=== PATIENT | female | born 1995 | race Caucasian/White ===

== ENCOUNTER 2022-02-01 11:54 | Inpatient (IN) | payer MEDICAID, SELFPAY ==
--- NOTE | ~2022-02-01 | CT_ITS ---
EXAMINATION: CT ABDOMEN AND PELVIS WITH CONTRAST CLINICAL INFORMATION: Right flank pain COMPARISON: None TECHNIQUE: Multidetector volumetric images were obtained from the superior aspect of the liver through the pubic symphysis following administration 85 mL of Omnipaque 350 intravenous contrast. Sagittal and coronal reformatted images were obtained on the technologist's workstation. Oral contrast: No This CT examination was performed using dose optimization techniques as appropriate, variously including the following: *Automated exposure control *Adjustment of mA and/or kV according to patient size (this includes techniques or standardized protocols for targeted exams where dose is matched to indication/reason for exam; i.e. extremities or head) *Use of iterative reconstruction technique DLP: 428 mGy-cm FINDINGS: LUNG BASES: The visualized lung bases are unremarkable. LIVER, GALLBLADDER, AND BILIARY TREE: The liver is normal in size, shape, and attenuation. No focal hepatic lesion or biliary ductal dilatation is present. The gallbladder is unremarkable with no evidence of radiopaque gallstones, gallbladder wall thickening, or obvious pericholecystic inflammatory changes. PANCREAS: Unremarkable. SPLEEN: Unremarkable. ADRENAL GLANDS: Unremarkable. KIDNEYS AND URETERS: There is heterogeneous enhancement of the right kidney. This can be seen with acute pyelonephritis. There is slight fullness of the right renal pelvis but no significant hydroureter. No renal or ureteral calculus. The left kidney and collecting system are normal. BLADDER: Unremarkable. GASTROINTESTINAL TRACT: The small and large bowel are unremarkable. The appendix is nonvisualized. ABDOMINAL WALL: No significant hernia is appreciated. LYMPH NODES: Normal. VASCULAR: Unremarkable. PELVIC VISCERA: There is an IUD within the uterus. Uterus is retroverted. No adnexal abnormality. OSSEOUS STRUCTURES: Unremarkable. CT/CT abdomen pelvis w IV con IMPRESSION: Heterogeneous enhancement of the right kidney suggestive of an acute pyelonephritis. Fleischner guidelines were followed.
[2022-02-01 13:26] VITALS: BP 117/66; BP 118/64; PULSE 104; PULSE 96; RESP 18; TEMP 36.8; O2SAT 99; BMI 26.4
[2022-02-01 14:26] LABS: Basophils Percent Auto 0.2 % (0-2); Hematocrit 38.4 % (37.0-47.0); Hemoglobin 13.2 g/dl (12.0-16.0); Imm Gran Pct Auto 0.6 % (0.0-0.4); Lymphocytes Absolute Auto 1.3 X10*3/uL (1.2-4.9); Lymphocytes Percent Auto 7.5 % (20-40); MANUAL DIFF FLAG SCAN; Mean Corpuscular HGB Conc 34.4 g/dl (31.0-35.0); Mean Corpuscular Hemoglobin 32.5 pg (27.0-33.0); Mean Corpuscular Volume 94.6 fL (80.0-98.0); Mean Platelet Volume 9.2 fL (9.4-12.3); Monocytes Absolute Auto 1.7 X10*3/uL (0.1-1.2); Monocytes Percent Auto 9.8 % (2-11); Neutrophils Absolute Auto 13.9 x10*3/uL (2.0-8.3); Neutrophils Percent Auto 81.9 % (45-73); Platelet Count 227 X10*3/uL (160-400); Red Blood Count 4.06 X10*6/uL (4.20-5.50); Red Cell Distribution Width 11.9 % (11.0-16.0); SCAN SMEAR FLAG 1; White Blood Count 16.9 X10*3/uL (4.8-10.8)
[2022-02-01 14:40] LABS: Alanine Aminotransferase 13 U/L (0-31); Albumin Level 4.7 g/dL (3.5-5.0); Alkaline Phosphatase 72 U/L (39-117); Anion Gap 19 (12-20); Aspartate Amino Transferase 16 U/L (5-31); Bilirubin Direct 0.3 mg/dL (0.0-0.5); Bilirubin Total 0.8 mg/dL (0.0-1.0); Blood Urea Nitrogen 9 mg/dL (9-16); Calcium 9.9 mg/dL (8.4-10.2); Carbon Dioxide 22 mmol/L (22-29); Chloride 100 mmol/L (96-108); Creatinine Clr Calc Pharmacy 84.7; Estimated Glomerular Filt Rate > 60; Glucose Random 100 mg/dL (60-115); Lipase 9 U/L (8-78); Potassium 3.7 mmol/L (3.3-5.1); Sodium 137 mmol/L (135-145); Total Protein 8.3 g/dL (6.5-8.0)
[2022-02-01 14:56] LABS: SLIDE REVIEW VERIFIED
[2022-02-01 16:00] VITALS: BP 117/69; PULSE 93; RESP 18; TEMP 37.1; O2SAT 99
--- NOTE | 2022-02-01 16:48 | ED_ITS ---
HPI - Female Genitourinary General Chief complaint: Urogenital-Female Stated complaint: RECENT UTI T-1,VOMITING,R SIDE PAIN PER EMS Time Seen by Provider: 02/01/22 15:34 Source: patient Mode of arrival: ambulatory Limitations: no limitations History of Present Illness HPI Narrative: 26-year-old female presenting to the ED for evaluation of urinary frequency, dysuria, nausea, and vomiting. The patient reports that about 2 weeks ago she developed urinary frequency and dysuria. She was seen at an Urgent Care for t hese symptoms 2 days ago, given a shot of antibiotics and a prescription for ciprofloxacin, however, for the past 1 day has had persistent nausea and vomiting and has not been able to keep anything down. She tells me that she has been unable to tolerate any PO intake including food, water, or her pills. She also believes that she has a fever and reports worsening pain in her right flank. She denies suspicion for STD or chance of . She denies any chest pain, shortness of breath, headaches, changes in vision, hematuria, vaginal bleeding, or vaginal discharge. Related Data Allergies Allergy/AdvReac Type Severity Reaction Status Date / Time No Known Allergies Allergy Verified 02/01/22 13:29 Review of Systems Review of Systems: Constitutional : No Weight loss, + Fever, No Chills, No Fatigue, No Malaise ENT/Mouth : No sore throat, No Rhinorrhea Eyes: No Eye Pain, No Swelling, No Redness Cardiovascular : No Chest Pain, No SOB, No Dyspnea on Exertion, No Orthopnea, No Edema, No Palpitations Respiratory : No Cough, No Sputum, No Wheezing Gastrointestinal : + Nausea, + Vomiting, No Diarrhea, No Constipation, No abdominal Pain, No Hematochezia, No Melena Genitourinary : + right flank pain + Dysuria, + Urinary Frequency, No Hematuria, No vaginal discharge, No vaginal bleeding Musculoskeletal : No joint pain, No Myalgias, No Joint Swelling Skin : No Skin Lesions, No rash Neuro : No Weakness, No Numbness, No Dizziness, No Headache All other systems reviewed and are negative Yes all other systems are reviewed and are negative [facility] Past Medical History Attestation statement: The following information was validated with the patient. Source: old records reviewed and nursing notes reviewed Medical History (Updated 02/01/22 @ 18:18 by GREGORY Landry) No known health problems Social History Social History Alcohol intake: current Alcohol intake frequency: a few times a week Alcohol type: hard liquor Patient Tobacco Use Status: Never used Tobacco Use of substances other than those prescribed or required for medical reasons: Yes Substance Use Type: Marijuana Advance Directives: No Advance Directives Information Provided: No Patient : No Physical Exam Vital Signs: Vital Signs: Last Vital Signs Temp 99.9 F 02/01/22 18:52 Pulse 90 02/01/22 18:52 Resp 16 02/01/22 18:52 BP 105/60 02/01/22 18:52 Pulse Ox 98 02/01/22 18:52 O2 Del Method 02/01/22 18:52 BMI result Body Mass Index 26.4 VSS Appearance: Alert.? Oriented X3.? No acute distress.? Head: Normocephalic, atraumatic, no step-offs or deformities Eyes: Pupils equal, round and reactive to light. Neck: Normal inspection.? Neck supple.? CVS: Normal heart rate and rhythm.? Pulses normal.? Respiratory: No respiratory distress.? Breath sounds normal.? Abdomen: Soft and nontender.? Skin: Skin warm and dry.? Normal skin color.? Normal skin turgor.? Extremities: No lower extremity edema.? No calf ttp. 5/5 strength to bilateral upper and lower extremities Back: No midline tenderness, no C-spine tenderness, full range of motion, minimal CVA tenderness bilaterally R> L Neuro: Oriented X 3.? No motor deficit.? No sensory deficit. CN 2-12 intact Course Reevaluation(s) Reevaluation #1: CBC remarkable for WBC count to 16.9, will order blood cultures and lactic. Chemistry is unremarkable. Urine pending. Time: 16:53 Reevaluation #2: Urine positive for protein, blood, and moderate leukocytes concerning for UTI vs pylo. Remainder negative. Urine negative. Lactic negative. Time: 18:15 Reevaluation #3: CT scan concerning for pyelonephritis, consistent with patient history, physical exam, laboratory studies and urine. Plan at this time is to admit patient to the hospitalist team. Time: 18:15 Additional Reevaluation(s): 1914 Patient will be admitted to hospital for further evaluation and tx. MDM - Female Genitourinary MDM Narrative Medical decision making narrative: 16:45 PM 26 y/o F presenting with urinary frequency, R flank pain, and nausea/vomiting. Seen by urgent care 2 days ago, given ciprofloxacin but has not been able to keep them down due to n/v. Reports subjective fever. PE remarkable for mild bilateral flank tenderness. VSS Plan to obtain basic labs, UA. Suspect UTI vs. pyelonephritis. Less likely k idney stone, PID, worsening infection Medical Records Attestation: I reviewed the patient's medical records. Lab Data Attestation: I reviewed the patient's lab results. Result diagrams: 02/01/22 14:17 02/01/22 14:17 Labs: Lab Results 02/01/22 02/01/22 02/01/22 Range/Units 14:17 14:17 16:56 WBC 16.9 H (4.8-10.8) X10*3/uL RBC 4.06 L (4.20-5.50) X10*6/uL Hgb 13.2 (12.0-16.0) g/dl Hct 38.4 (37.0-47.0) % MCV 94.6 (80.0-98.0) fL MCH 32.5 (27.0-33.0) pg MCHC 34.4 (31.0-35.0) g/dl RDW 11.9 (11.0-16.0) % Plt Count 227 (160-400) X10*3/uL MPV 9.2 L (9.4-12.3) fL Immature Gran % (Auto) 0.6 H (0.0-0.4) % Neut % (Auto) 81.9 H (45-73) % Lymph % (Auto) 7.5 L (20-40) % [place] % (Auto) 9.8 (2-11) % Eos % (Auto) 0.0 (0-4) % Baso % (Auto) 0.2 (0-2) % Lymph # (Auto) 1.3 (1.2-4.9) X10*3/uL [place] # (Auto) 1.7 H (0.1-1.2) X10*3/uL Eos # (Auto) 0.0 (0.0-0.4) X10*3/uL Baso # (Auto) 0.0 (0.0-0.2) X10*3/uL Abs Immat Gran (auto) 0.10 H (0.00-0.03) X10*3/uL Absolute Neuts (auto) 13.9 H (2.0-8.3) x10*3/uL Absolute Nucleated RBC 0.000 (0.0-0.012) X10*3/uL Nucleated RBC % (auto) 0.0 (0.0-0.2) /100WBC Smear Tech's Comments VERIFIED Sodium 137 (135-145) mmol/L Potassium 3.7 (3.3-5.1) mmol/L Chloride 100 (96-108) mmol/L Carbon Dioxide 22 (22-29) mmol/L Anion Gap 19 (12-20) BUN 9 (9-16) mg/dL Creatinine 0.83 (0.5-1.4) mg/dL Estim Creat Clear Calc 84.7 Estimated GFR > 60 Random Glucose 100 (60-115) mg/dL Lactic Acid 1.3 (0.5-2.0) mmol/L Calcium 9.9 (8.4-10.2) mg/dL Total Bilirubin 0.8 (0.0-1.0) mg/dL Direct Bilirubin 0.3 (0.0-0.5) mg/dL AST 16 (5-31) U/L ALT 13 (0-31) U/L Alkaline Phosphatase 72 (39-117) U/L Total Protein 8.3 H (6.5-8.0) g/dL Albumin 4.7 (3.5-5.0) g/dL Lipase 9 (8-78) U/L Urine Color Urine Appearance Urine pH (5.0-9.0) Ur Specific [place] (1.005-1.025) Urine Protein (Neg-Trace) mg/dL Urine Glucose (UA) (Negative) mg/dL Urine Ketones (Negative) mg/dL Urine Blood (Negative) Urine Nitrite (Negative) Ur Leukocyte Esterase (Negative) Urine RBC (0-2) /HPF Urine WBC (0-5) /HPF Ur Squamous Epith Cells (0-2) /HPF Urine Bacteria (None Seen) Hyaline Casts (0-2) /LPF Urine Test (NEGATIVE) 09/21/22 09/21/22 Range/Units 16:56 16:56 WBC (4.8-10.8) X10*3/uL RBC (4.20-5.50) X10*6/uL Hgb (12.0-16.0) g/dl Hct (37.0-47.0) % MCV (80.0-98.0) fL MCH (27.0-33.0) pg MCHC (31.0-35.0) g/dl RDW (11.0-16.0) % Plt Count (160-400) X10*3/uL MPV (9.4-12.3) fL Immature Gran % (Auto) (0.0-0.4) % Neut % (Auto) (45-73) % Lymph % (Auto) (20-40) % [place] % (Auto) (2-11) % Eos % (Auto) (0-4) % Baso % (Auto) (0-2) % Lymph # (Auto) (1.2-4.9) X10*3/uL [place] # (Auto) (0.1-1.2) X10*3/uL Eos # (Auto) (0.0-0.4) X10*3/uL Baso # (Auto) (0.0-0.2) X10*3/uL Abs Immat Gran (auto) (0.00-0.03) X10*3/uL Absolute Neuts (auto) (2.0-8.3) x10*3/uL Absolute Nucleated RBC (0.0-0.012) X10*3/uL Nucleated RBC % (auto) (0.0-0.2) /100WBC Smear Tech's Comments Sodium (135-145) mmol/L Potassium (3.3-5.1) mmol/L Chloride (96-108) mmol/L Carbon Dioxide (22-29) mmol/L Anion Gap (12-20) BUN (9-16) mg/dL Creatinine (0.5-1.4) mg/dL Estim Creat Clear Calc Estimated GFR Random Glucose (60-115) mg/dL Lactic Acid (0.5-2.0) mmol/L Calcium (8.4-10.2) mg/dL Total Bilirubin (0.0-1.0) mg/dL Direct Bilirubin (0.0-0.5) mg/dL AST (5-31) U/L ALT (0-31) U/L Alkaline Phosphatase (39-117) U/L Total Protein (6.5-8.0) g/dL Albumin (3.5-5.0) g/dL Lipase (8-78) U/L Urine Color Yellow Urine Appearance Cloudy Urine pH 5.5 (5.0-9.0) Ur Specific [place] 1.020 (1.005-1.025) Urine Protein 100 (2+) H (Neg-Trace) mg/dL Urine Glucose (UA) Negative (Negative) mg/dL Urine Ketones >=160 (Negative) mg/dL Urine Blood Moderate (2+) H (Negative) Urine Nitrite Negative (Negative) Ur Leukocyte Esterase Moderate (2+) H (Negative) Urine RBC 11-20 H (0-2) /HPF Urine WBC >50 H (0-5) /HPF Ur Squamous Epith Cells 11-20 (0-2) /HPF Urine Bacteria 1+ (None Seen) Hyaline Casts 0-2 (0-2) /LPF Urine Test NEGATIVE (NEGATIVE) Critical Care Time Critical Care Time Critical Care Time: No Discharge Plan Discharge Clinical Impression: Urinary tract infection, Pyelonephritis, Nausea & vomiting Patient Disposition: Admitted As Inpatient
[2022-02-01] MEDS: 0.9 % Sodium Chloride 1,000 ML 999 ML IV ×2 (17:04→18:36)
[2022-02-01] MEDS: ondansetron HCL 4 MG/2 ML VIAL IVPUSH (17:04)
[2022-02-01] MEDS: levoFLOXacin/D5W 750 MG/150 ML PIGGYBACK 100 MG IV (17:04)
[2022-02-01 17:09] LABS: Appearance Urine Cloudy; Color Urine Yellow; Glucose Urine UA Negative (Negative); Leukocyte Esterase Urine Moderate (2+) (Negative); Nitrite Urine Negative (Negative); PH 5.5 (5.0-9.0); UMIC TRIGGER UACC YES; Urine Blood Moderate (2+) (Negative); Urine Ketones >=160 mg/dL (Negative); Urine Protein 100 (2+) mg/dL (Neg-Trace)
[2022-02-01 17:11] LABS: UPreg QC Valid YES; Urine Pregnancy NEGATIVE (NEGATIVE)
--- NOTE | 2022-02-01 17:11 | PC.NURSE ---
pt a&ox3, vss, 20G IV placed left AC, labs drawn, urine sample obtained, medicated per provider order, NaCl running. pt pending CT scan.
[2022-02-01 17:16] LABS: Lactic Acid 1.3 mmol/L (0.5-2.0)
[2022-02-01] MEDS: iohexoL 350 MG/ML 100 ML INFUS..BTL IV (17:42)
[2022-02-01 18:06] LABS: Bacteria Urine 1+ (None Seen); Hyaline Casts Urine 0-2 /LPF (0-2); UACC Culture Trigger YES; WBC Urine >50 /HPF (0-5)
[2022-02-01] MEDS: Ketorolac Tromethamine 15 MG/ML VIAL 30 MG IVPUSH (18:38)
--- NOTE | 2022-02-01 18:39 | PC.NURSE ---
medicated per provider order, pt reporting 6/10 right flank pain, 2nd L NaCl running.
[2022-02-01 18:52] VITALS: BP 105/60; PULSE 90; RESP 16; TEMP 37.7; O2SAT 98
--- NOTE | 2022-02-01 19:49 | PHA.MEDREC ---
Pharmacy Consult ? Medication Reconciliation Pharmacy has completed the medication reconciliation.
[2022-02-01 20:36] VITALS: BP 105/62; PULSE 83; RESP 16; TEMP 36.8; O2SAT 98
[2022-02-01 20:49] VITALS: BP 134/70; PULSE 75; RESP 16; TEMP 36.8; O2SAT 98
--- NOTE | 2022-02-01 20:53 | P.HPHOSP_ITS ---
History of Present Illness Date of Service: 02/01/22 Chief Complaint: flank pain this is a 26-year-old female with no significant past medical history presents to the hospital with complaints of several weeks of dysuria, urinary urgency, and flank pain that developed about 3 days ago associated with nausea vomiting. Patient reports that she initially ignored her symptoms because she thought it was associated with her. But then has developed nausea and vomiting. She was seen at urgent care yesterday and was prescribed an oral antibiotics but due to the nausea vomiting has not been able to keep any of her at pills down. She had a fever 2 nights ago but does not have a thermometer at home to measure, has been experiencing chills, reports a right-sided 8/10 nonradiating constant sharp flank pain. Denies any diarrhea constipation, and no lower extremity edema. On arrival to the ED patient hemodynamically stable with no significant abnormal vitals Labs are significant for WBC count of 16.9, preop positive for leukocyte Estrace and WBC, CT of the abdomen shows acute pyelonephritis patient started on IV antibiotics and will be admitted for further management Review of Systems Review of Systems: Yes all other systems are reviewed and are negative [facility] Medical History (Updated 02/01/22 @ 21:46 by Rajan Whalen MD) No known health problems Family History (Updated 02/01/22 @ 21:45 by Rajan Whalen MD) Other Adopted Surgical History (Updated 02/01/22 @ 21:45 by Rajan Whalen MD) No pertinent past surgical history Social History Alcohol intake: current Alcohol intake frequency: a few times a week Alcohol type: hard liquor Patient Tobacco Use Status: Never used Tobacco Use of substances other than those prescribed or required for medical reasons: Yes Substance Use Type: Marijuana Advance Directives: No Advance Directives Information Provided: No Patient : No Meds Allergies Allergy/AdvReac Type Severity Reaction Status Date / Time No Known Allergies Allergy Verified 02/01/22 13:29 Active Medications: Current Medications Acetaminophen (Acetaminophen 325 Mg Tablet) 650 mg PO Q6H PRN PRN Reason: Pain, Mild (Pain Scale 1-3) Docusate Sodium (Docusate Sodium 100 Mg Capsule) 100 mg PO DAILY PRN PRN Reason: Constipation Enoxaparin Sodium (Enoxaparin Sodium 40 Mg/0.4 Ml Syringe) 40 mg SUBCUT Q24H [facility] Ceftriaxone Sodium 1 gm/ (Sodium Chloride) 50 mls @ 100 mls/hr IV Q24H [facility] Lactated Ringer's (Lr) 1,000 mls @ 100 mls/hr IVCONT .Q10H [facility] Morphine Sulfate (Morphine Sulfate 4 Mg/Ml Cartridge) 4 mg IVPUSH Q4H PRN; Protocol PRN Reason: Pain, Severe (Pain Scale 7-10) Ondansetron HCl (Ondansetron Hcl 4 Mg/2 Ml Vial) 4 mg IVPUSH Q8H PRN PRN Reason: Nausea and Vomiting Pharmacy Consult (Consult Rx Perform Med Rec) 1 each MISCELLANE ONCE PRN PRN Reason: Consult order Sodium Chloride (0.9 % Sodium Chloride Flush 3 Ml Syringe) 3 ml IVFLUSH QSHIFT [facility] Home Medications Medication Instructions Recorded Confirmed Last Taken Type No Known Home Meds 02/01/22 02/01/22 Unknown History Physical Exam Vital Signs and Narrative: Vital Signs: Last Vital Signs Temp 98.3 F 02/01/22 20:36 Pulse 83 02/01/22 20:36 Resp 16 02/01/22 20:36 BP 105/62 02/01/22 20:36 Pulse Ox 98 02/01/22 20:36 O2 Del Method 02/01/22 20:36 BMI result Body Mass Index 26.4 Const: General: cooperative and no acute distress Orientation/consciousness: patient oriented x3 Eyes: General: appearance normal, both eyes and all related structures Resp: Effort & Inspection: normal respiratory effort Auscultation: clear to auscultation bilaterally Cardio: Rate: regular rate Rhythm: regular rhythm GI: Palpation (GI): Soft to palpation Auscultation: normal bowel sounds : Other: right CVA tenderness Skin: General skin exam: no rashes or lesions noted Neuro: General: patient oriented x3 Cognition (Neuro): normal cognition Extrem: General: Yes normal to inspection and Yes no pedal edema Results Labs CBC and Chem 7: 02/01/22 14:17 02/01/22 14:17 Labs: Laboratory Results - last 24 hr 02/01/22 02/01/22 02/01/22 14:17 14:17 16:56 MCV 94.6 MCH 32.5 MCHC 34.4 RDW 11.9 Plt Count 227 MPV 9.2 L Immature Gran % (Auto) 0.6 H Neut % (Auto) 81.9 H Lymph % (Auto) 7.5 L [place] % (Auto) 9.8 Eos % (Auto) 0.0 Baso % (Auto) 0.2 Lymph # (Auto) 1.3 [place] # (Auto) 1.7 H Eos # (Auto) 0.0 Baso # (Auto) 0.0 Abs Immat Gran (auto) 0.10 H Absolute Neuts (auto) 13.9 H Absolute Nucleated RBC 0.000 Nucleated RBC % (auto) 0.0 Smear Tech's Comments VERIFIED Anion Gap 19 Estim Creat Clear Calc 84.7 Estimated GFR > 60 Random Glucose 100 Lactic Acid 1.3 Calcium 9.9 Total Bilirubin 0.8 Direct Bilirubin 0.3 AST 16 ALT 13 Alkaline Phosphatase 72 Total Protein 8.3 H Albumin 4.7 Lipase 9 Urine Color Urine Appearance Urine pH Ur Specific [place] Urine Protein Urine Glucose (UA) Urine Ketones Urine Blood Urine Nitrite Ur Leukocyte Esterase Urine RBC Urine WBC Ur Squamous Epith Cells Urine Bacteria Hyaline Casts Urine Test 02/01/22 02/01/22 16:56 16:56 MCV MCH MCHC RDW Plt Count MPV Immature Gran % (Auto) Neut % (Auto) Lymph % (Auto) [place] % (Auto) Eos % (Auto) Baso % (Auto) Lymph # (Auto) [place] # (Auto) Eos # (Auto) Baso # (Auto) Abs Immat Gran (auto) Absolute Neuts (auto) Absolute Nucleated RBC Nucleated RBC % (auto) Smear Tech's Comments Anion Gap Estim Creat Clear Calc Estimated GFR Random Glucose Lactic Acid Calcium Total Bilirubin Direct Bilirubin AST ALT Alkaline Phosphatase Total Protein Albumin Lipase Urine Color Yellow Urine Appearance Cloudy Urine pH 5.5 Ur Specific [place] 1.020 Urine Protein 100 (2+) H Urine Glucose (UA) Negative Urine Ketones >=160 Urine Blood Moderate (2+) H Urine Nitrite Negative Ur Leukocyte Esterase Moderate (2+) H Urine RBC 11-20 H Urine WBC >50 H Ur Squamous Epith Cells 11-20 Urine Bacteria 1+ Hyaline Casts 0-2 Urine Test NEGATIVE Imaging Radiologist's Impressions: Impressions Abdomen/Pelvis CT 02/01/22 17:41 IMPRESSION: Heterogeneous enhancement of the right kidney suggestive of an acute pyelonephritis. Fleischner guidelines were followed. Assessment and Plan (1) Urinary tract infection: Qualifiers: Urinary tract infection type: acute cystitis Hematuria presence: with hematuria Qualified Code(s): N30.01 - Acute cystitis with hematuria Status: Acute (2) Pyelonephritis: Status: Acute (3) Nausea & vomiting: Qualifiers: Vomiting type: bilious vomiting Qualified Code(s): R11.14 - Bilious vomiting Status: Acute Plan 76-year-old female with no significant past medical history presents to the hospital with complaints of flank pain as well as dysuria and urgency found to have acute UTI with pyelonephritis # acute pyelonephritis - secondary to UTI, CT abdomen shows pyelonephritis with no evidence of kidney stone - will treat with IV antibiotics - follow cultures # acute cystitis - positive UA with hematuria - will treat with IV antibiotics, follow cultures # nausea and vomiting - antiemetics - IV fluids DVT prophylaxis: Lovenox given need for IV antibiotics patient will require minimum 2 night hospital stay for further management Quality Stroke Does the patient have a stroke diagnosis?: No VTE Prior VTE?: No VTE Risk Level:: Medical - moderate - high VTE Device Contraindication: Treatment Not Indicated VTE Drug Contraindication: N/A - Med Ordered
[2022-02-01 21:02] LABS: COVID-19 Test Negative (Negative)
[2022-02-01] MEDS: cefTRIAXone sodium 1 GM in 0.9 % Sodium Chloride 50 ML IV (22:10)
[2022-02-01] MEDS: Enoxaparin Sodium 40 MG/0.4 ML SYRINGE SUBCUT (22:10)
--- NOTE | 2022-02-01 22:15 | PC.NURSE ---
pt a&ox3, vss, medicated per provider order. pt denies any pain at this time, reports that she is feeling much better.
[2022-02-01] MEDS: Lactated Ringers 1,000 ML 100 ML IVCONT (22:22)
[2022-02-02] VITALS (8 sets, daily range): BP systolic 93–119; BP diastolic 57–82; PULSE 70–92; RESP 12–18; TEMP 36.8–37.4; O2SAT 98–100
[2022-02-02 04:48] LABS: MANUAL DIFF FLAG NO
[2022-02-02 04:50] LABS: Basophils Percent Auto 0.3 % (0-2); Eosinophils Percent Auto 0.2 % (0-4); Hemoglobin 10.6 g/dl (12.0-16.0); Imm Gran Abs Auto 0.04 X10*3/uL (0.00-0.03); Imm Gran Pct Auto 0.4 % (0.0-0.4); Lymphocytes Absolute Auto 1.2 X10*3/uL (1.2-4.9); Lymphocytes Percent Auto 12.2 % (20-40); Mean Corpuscular HGB Conc 34.2 g/dl (31.0-35.0); Mean Corpuscular Volume 93.7 fL (80.0-98.0); Mean Platelet Volume 9.1 fL (9.4-12.3); Monocytes Absolute Auto 1.3 X10*3/uL (0.1-1.2); Monocytes Percent Auto 12.7 % (2-11); Neutrophils Absolute Auto 7.6 x10*3/uL (2.0-8.3); Neutrophils Percent Auto 74.2 % (45-73); Platelet Count 172 X10*3/uL (160-400); Red Blood Count 3.31 X10*6/uL (4.20-5.50); Red Cell Distribution Width 11.8 % (11.0-16.0); White Blood Count 10.2 X10*3/uL (4.8-10.8)
[2022-02-02 05:07] LABS: Anion Gap 14 (12-20); Blood Urea Nitrogen 10 mg/dL (9-16); Calcium 8.2 mg/dL (8.4-10.2); Carbon Dioxide 19 mmol/L (22-29); Chloride 108 mmol/L (96-108); Creatinine Clr Calc Pharmacy 100.4; Estimated Glomerular Filt Rate > 60; Glucose Random 111 mg/dL (60-115); Potassium 3.4 mmol/L (3.3-5.1); Sodium 138 mmol/L (135-145)
[2022-02-02] MEDS: Lactated Ringers 1,000 ML 100 ML IVCONT ×2 (07:58→18:25)
[2022-02-02] MEDS: 0.9 % Sodium Chloride Flush 3 ML SYRINGE IVFLUSH (07:59)
--- NOTE | 2022-02-02 09:24 | MHC.CM.PN ---
PATIENT LIVES WITH HER [id number] SON (WHO IS CURRENTLY WITH HIS GOD-MOTHER) SHE IS INDEPENDENT WITH ALL ADLS. NO DME,VNA, OR PCP. SHE IS AWARE OF THE IMPORTANCE OF SECURING A PCP. PATIENT IS HOPING TO RETURN HOME SOON IS POSSIBLE. SHE CAN ARRANGE FOR HER OWN TRANSPORTATION AGNES FROST X 2 WITH [employer].
--- NOTE | 2022-02-02 13:26 | HO.PM.IMPN ---
Subjective Subjective Date of Service: 02/02/22 Interval History: Pyelonephritis Review of Systems Still has flank pain, Denies any chest pain or shortness of breath or fever chills. Physical Exam Vital Signs: Vital Signs: Last Vital Signs Temp 99.2 F 02/02/22 11:40 Pulse 72 02/02/22 11:40 Resp 12 02/02/22 11:40 BP 111/82 02/02/22 11:40 Pulse Ox 100 02/02/22 11:40 O2 Del Method 02/02/22 11:40 BMI result Body Mass Index 26.4 Appearance: Alert.? Oriented X3.? not in distress. cvs: [id number], [id number] . res: clear to auscultation ,no rhonchii or wheezing abd: no rebound or guarding ,right cva tenderness , bs present. ext pulses present , no cyanosis . neuro: axo3 , nonfocal. Objective Data Active Medications Acetaminophen (Acetaminophen 325 Mg Tablet) 650 mg PO Q6H PRN PRN Reason: Pain, Mild (Pain Scale 1-3) Docusate Sodium (Docusate Sodium 100 Mg Capsule) 100 mg PO DAILY PRN PRN Reason: Constipation Enoxaparin Sodium (Enoxaparin Sodium 40 Mg/0.4 Ml Syringe) 40 mg SUBCUT Q24H [facility] Last Admin: 02/01/22 22:10 Dose: 40 mg Documented By: JOHNNY Ceftriaxone Sodium 1 gm/ (Sodium Chloride) 50 mls @ 100 mls/hr IV Q24H [facility] Last Infusion: 02/01/22 23:25 Dose: 0 mls/hr Documented By: JOHNNY Lactated Ringer's (Lr) 1,000 mls @ 100 mls/hr IVCONT .Q10H [facility] Last Admin: 02/02/22 07:58 Dose: 100 mls/hr Documented By: IRENA Morphine Sulfate (Morphine Sulfate 4 Mg/Ml Cartridge) 4 mg IVPUSH Q4H PRN; Protocol PRN Reason: Pain, Severe (Pain Scale 7-10) Ondansetron HCl (Ondansetron Hcl 4 Mg/2 Ml Vial) 4 mg IVPUSH Q8H PRN PRN Reason: Nausea and Vomiting Pharmacy Consult (Consult Rx Perform Med Rec) 1 each MISCELLANE ONCE PRN PRN Reason: Consult order Sodium Chloride (0.9 % Sodium Chloride Flush 3 Ml Syringe) 3 ml IVFLUSH QSHIFT [facility] Last Admin: 02/02/22 07:59 Dose: 3 ml Documented By: IRENA Labs CBC & Chem 7: 02/02/22 04:36 02/02/22 04:36 Labs: Laboratory Results - last 24 hr 02/01/22 02/01/22 02/01/22 14:17 14:17 16:56 MCV 94.6 MCH 32.5 MCHC 34.4 RDW 11.9 Plt Count 227 MPV 9.2 L Immature Gran % (Auto) 0.6 H Neut % (Auto) 81.9 H Lymph % (Auto) 7.5 L [place] % (Auto) 9.8 Eos % (Auto) 0.0 Baso % (Auto) 0.2 Lymph # (Auto) 1.3 [place] # (Auto) 1.7 H Eos # (Auto) 0.0 Baso # (Auto) 0.0 Abs Immat Gran (auto) 0.10 H Absolute Neuts (auto) 13.9 H Absolute Nucleated RBC 0.000 Nucleated RBC % (auto) 0.0 Smear Tech's Comments VERIFIED Anion Gap 19 Estim Creat Clear Calc 84.7 Estimated GFR > 60 Random Glucose 100 Lactic Acid 1.3 Calcium 9.9 Total Bilirubin 0.8 Direct Bilirubin 0.3 AST 16 ALT 13 Alkaline Phosphatase 72 Total Protein 8.3 H Albumin 4.7 Lipase 9 Urine Color Urine Appearance Urine pH Ur Specific [place] Urine Protein Urine Glucose (UA) Urine Ketones Urine Blood Urine Nitrite Ur Leukocyte Esterase Urine RBC Urine WBC Ur Squamous Epith Cells Urine Bacteria Hyaline Casts Urine Test COVID-19 (STEFANIE) COVID-19 Clin Com 02/01/22 02/01/22 02/01/22 16:56 16:56 20:37 MCV MCH MCHC RDW Plt Count MPV Immature Gran % (Auto) Neut % (Auto) Lymph % (Auto) [place] % (Auto) Eos % (Auto) Baso % (Auto) Lymph # (Auto) [place] # (Auto) Eos # (Auto) Baso # (Auto) Abs Immat Gran (auto) Absolute Neuts (auto) Absolute Nucleated RBC Nucleated RBC % (auto) Smear Tech's Comments Anion Gap Estim Creat Clear Calc Estimated GFR Random Glucose Lactic Acid Calcium Total Bilirubin Direct Bilirubin AST ALT Alkaline Phosphatase Total Protein Albumin Lipase Urine Color Yellow Urine Appearance Cloudy Urine pH 5.5 Ur Specific [place] 1.020 Urine Protein 100 (2+) H Urine Glucose (UA) Negative Urine Ketones >=160 Urine Blood Moderate (2+) H Urine Nitrite Negative Ur Leukocyte Esterase Moderate (2+) H Urine RBC 11-20 H Urine WBC >50 H Ur Squamous Epith Cells 11-20 Urine Bacteria 1+ Hyaline Casts 0-2 Urine Test NEGATIVE COVID-19 (STEFANIE) Negative COVID-19 Clin Com See Note 02/02/22 02/02/22 04:36 04:36 MCV 93.7 MCH 32.0 MCHC 34.2 RDW 11.8 Plt Count 172 MPV 9.1 L Immature Gran % (Auto) 0.4 Neut % (Auto) 74.2 H Lymph % (Auto) 12.2 L [place] % (Auto) 12.7 H Eos % (Auto) 0.2 Baso % (Auto) 0.3 Lymph # (Auto) 1.2 [place] # (Auto) 1.3 H Eos # (Auto) 0.0 Baso # (Auto) 0.0 Abs Immat Gran (auto) 0.04 H Absolute Neuts (auto) 7.6 Absolute Nucleated RBC 0.000 Nucleated RBC % (auto) 0.0 Smear Tech's Comments Anion Gap 14 Estim Creat Clear Calc 100.4 Estimated GFR > 60 Random Glucose 111 Lactic Acid Calcium 8.2 L D Total Bilirubin Direct Bilirubin AST ALT Alkaline Phosphatase Total Protein Albumin Lipase Urine Color Urine Appearance Urine pH Ur Specific [place] Urine Protein Urine Glucose (UA) Urine Ketones Urine Blood Urine Nitrite Ur Leukocyte Esterase Urine RBC Urine WBC Ur Squamous Epith Cells Urine Bacteria Hyaline Casts Urine Test COVID-19 (STEFANIE) COVID-19 Clin Com Microbiology Microbiology Results: Microbiology 02/01/22 18:08 Urine Culture - Preliminary Urine clean catch - Urine guerra top No growth to date. Assessment and Plan (1) Urinary tract infection: Status: Acute (2) Pyelonephritis: Status: Acute (3) Nausea & vomiting: Status: Acute Plan 76-year-old female with no significant past medical history presents to the hospital with complaints of flank pain as well as dysuria and urgency found to have acute UTI with pyelonephritis #? acute pyelonephritis -? secondary to UTI, CT abdomen shows pyelonephritis with no evidence of kidney stone -? will treat with IV antibiotics -? follow cultures #? acute cystitis -? positive UA with hematuria -? will treat with IV antibiotics, follow cultures #? nausea and vomiting -? antiemetics -? IV fluids ?DVT prophylaxis: Lovenox inpatient need: pyelonephritis needs iv antibiotics ,cultures and senstivities pending Quality Stroke Does the patient have a stroke diagnosis?: No VTE Prior VTE?: No VTE Risk Level:: Medical - moderate - high VTE Device Contraindication: Treatment Not Indicated VTE Drug Contraindication: N/A - Med Ordered
[2022-02-02] MEDS: cefTRIAXone sodium 1 GM in 0.9 % Sodium Chloride 50 ML IV (20:49)
[2022-02-02] MEDS: Enoxaparin Sodium 40 MG/0.4 ML SYRINGE SUBCUT (20:49)
[2022-02-02] MEDS: Acetaminophen 325 MG TABLET 650 MG PO (20:50)
[2022-02-03] MEDS: 0.9 % Sodium Chloride Flush 3 ML SYRINGE IVFLUSH (00:10)
[2022-02-03 03:25] VITALS: BP 111/64; PULSE 74; RESP 18; TEMP 36.6; O2SAT 98
[2022-02-03] MEDS: Lactated Ringers 1,000 ML 100 ML IVCONT (04:05)
[2022-02-03] MEDS: ondansetron HCL 4 MG/2 ML VIAL IVPUSH (07:42)
[2022-02-03] MEDS: Morphine Sulfate 4 MG/ML CARTRIDGE IVPUSH (07:43)
[2022-02-03 08:00] VITALS: BP 125/66; PULSE 67; RESP 20; TEMP 36; O2SAT 100
[2022-02-03 11:37] VITALS: BP 106/66; PULSE 66; RESP 18; TEMP 37; O2SAT 100
--- NOTE | 2022-02-03 12:09 | MHC.CM.PN ---
HOME - SELF CARE RN AWARE OF THE PLAN.
--- NOTE | 2022-02-03 12:35 | PM.DS ---
DS: Providers Provider Date of Service: 02/03/22 Date of admission: 02/01/22 20:48 Primary care physician: None Physician DS: Diagnosis Discharge Diagnosis (1) Urinary tract infection: Status: Acute (2) Pyelonephritis: Status: Acute (3) Nausea & vomiting: Status: Acute DS: Summary Hospital Course Hospital Course: 26-year-old female with no significant past medical history presents to the hospital with complaints of several weeks of dysuria, urinary urgency, and flank pain that developed about 3 days ago associated with nausea vomiting.? Patient reports that she initially ignored her symptoms because she thought it was associated with her.? But then has developed nausea and vomiting.? She was seen at urgent care yesterday and was prescribed an oral antibiotics but due to the nausea vomiting has not been able to keep any of her at pills down.? She had a fever 2 nights ago but does not have a thermometer at home to measure, has been experiencing chills, reports a right-sided 8/10 nonradiating constant sharp flank pain.? Denies any diarrhea constipation, and no lower extremity edema.? On arrival to the ED patient hemodynamically stable with no significant abnormal vitals Labs are significant for WBC count of 16.9, preop positive for leukocyte Estrace and WBC, CT of the abdomen shows acute pyelonephritis ?patient started on IV antibiotics and will be admitted for further management. Hopsital course: Patient came to the hospital because of acute pyelonephritis-given IV antibiotics, seems to be improved. Blood culture negative, urine culture preliminary also negative. Because patient is symptomatic we will give antibiotic course for UTI concern. Further management outpatient with PCP. plan: Please complete the course of antibiotic Encouraged for hydration Follow-up with PCP in 1 week. Above management discussed with the patient in detail length she understand and in agreement with the above plan, time spent 50 minutes and 50% time spent on counseling. Significant findings: As above. Procedures performed: None. Treatment and response: As above. Complications: None. Time Spent with Patient Time attestation: Total time spent providing and/or coordinating discharge services: Discharge coordination time: Greater than 30 minutes Quality: Safe Use of Opioids Does Pt have an Active Cancer Diagnosis on the Problem List?: No Quality: Stroke Does the patient have a stroke diagnosis?: No Physical Exam Vital Signs: Vital Signs: Last Vital Signs Temp 98.6 F 02/03/22 11:37 Pulse 66 02/03/22 11:37 Resp 18 02/03/22 11:37 BP 106/66 02/03/22 11:37 Pulse Ox 100 02/03/22 11:37 O2 Del Method 02/03/22 11:37 BMI result Body Mass Index 26.4 Appearance: Alert.? Oriented X3.? not in distress. cvs: rrr, [id number] . res: clear to auscultation ,no rhonchii or wheezing abd: no rebound or guarding ,nt , bs present. ext pulses present , no cyanosis . neuro: axo3 , nonfocal. DS: Data Data Completed and Pending Labs on day of discharge: Preliminary micro results at discharge 02/01/22 18:08 Urine Culture - Preliminary Urine clean catch - Urine guerra top No growth to date. 02/01/22 16:56 Blood Culture - Preliminary Blood - Venous No growth after 24 hours. 02/01/22 16:56 Blood Culture - Preliminary Blood - Venous No growth after [address]/CT abdomen pelvis w IV con IMPRESSION: Heterogeneous enhancement of the right kidney suggestive of an acute pyelonephritis. ? ? Fleischner guidelines were followed. Discharge Plan Discharge Patient Disposition: Home, Self-Care Discharge Diagnosis: pyelnephritis Referrals: Physician,None [Primary Care Provider] - 1 Week Discharge Medications: New acetaminophen 325 mg Tablet 650 mg PO Q6H PRN (Reason: Pain, Mild (Pain Scale 1-3)) Qty: 10 0RF docusate sodium 100 mg Capsule 100 mg PO DAILY PRN (Reason: Constipation) Qty: 10 0RF cefuroxime axetil 500 mg Tablet 500 mg PO Q12H Qty: 14 0RF Discharge Orders: Discharge Order (Routine); Ordered 02/03/22 Ordered By: Mally Foreman Diet: Advance to usual diet Activity on Discharge: As tolerated Stand Alone Forms: Patient Portal Discharge page Care Plan Goals: Patient came to the hospital because of acute pyelonephritis-given IV antibiotics, seems to be improved. Blood culture negative, urine culture preliminary also negative. Because patient is symptomatic we will give antibiotic course for UTI concern. Further management outpatient with PCP. Health Concerns: If abdominal pain or fever or nausea vomiting again or any new symptoms please come to nearest emergency room for further evaluation. Please complete the course of antibiotics Plan of Treatment: Please complete the course of antibiotic Encouraged for hydration Follow-up with PCP in 1 week. Assessment: As above. Discharge Date/Time: 02/03/22 13:39
[2022-02-03] MEDS: Acetaminophen 325 MG TABLET 650 MG PO (13:20)
== END 2022-02-03 13:39 | disposition home or self-care (01) | DRG 463 ==
LOC: HO.ED 19:17 → HO.EDOVER 21:19 → HO.S3 02-02 07:17
PROVIDERS: Physician Assistant; Admitting Provider Internal Medicine; Emergency Provider Emergency Medicine; Visit Provider Internal Medicine
DX: N10 Acute pyelonephritis (principal); N30.00 Acute cystitis without hematuria; Z20.822 Contact with and (suspected) exposure to COVID-19
CPT/HCPCS: 36415; 74177; 80048; 80076; 81001; 81025; 83605; 83690; 85025; 87040; 87086; 87088; 87635; 99218; 99285; J0696; J1650; J1885; J1956; J2270; J2405; Q9967

== ENCOUNTER 2023-05-20 14:57 | Emergency (ER) | payer OTHER, SELFPAY ==
[2023-05-20 14:58] VITALS: BP 112/62; PULSE 68; RESP 18; TEMP 36.8; O2SAT 99; BMI 24.2
--- NOTE | 2023-05-20 15:01 | ED.GENADULT ---
HPI - General Adult General Chief complaint: General Medical Stated complaint: back and abd pain, Time Seen by Provider: 05/20/23 15:20 Source: patient, RN notes reviewed and old records reviewed Mode of arrival: ambulatory History of Present Illness HPI narrative: 28-year-old female presenting to ED complaining of lower abdominal and low back pain x last night. Also reports nausea and vomiting. Admits to positive home test last week. LMP beginning of April. Denies fever/chills, vaginal bleeding/discharge, dysuria Onset (ago): day(s) Related Data Previous Rx's Medication Instructions Recorded acetaminophen 325 mg tablet 650 mg (2 x 325 mg) PO Q6H PRN 02/03/22 Pain, Mild (Pain Scale 1-3) #10 tabs cefuroxime axetil 500 mg tablet 500 mg PO Q12H #14 tabs 02/03/22 docusate sodium 100 mg capsule 100 mg PO DAILY PRN Constipation 02/03/22 #10 caps Allergies Allergy/AdvReac Type Severity Reaction Status Date / Time No Known Allergies Allergy Verified 02/01/22 13:29 Review of Systems Review of Systems: Constitutional: No Fever, No Chills ENT/Mouth: No Ear Pain, No Nasal Congestion, No sore throat, No Rhinorrhea, No Swallowing Difficulty Cardiovascular: No Chest Pain, No SOB Respiratory: No Cough, No Sputum, No Wheezing Gastrointestinal: + Nausea, + Vomiting, No Diarrhea, No Constipation, + Abdominal pain, vaginal bleeding, no vaginal discharge Genitourinary: No Dysuria, No Urinary Frequency, No Hematuria, No Flank Pain Musculoskeletal: No joint pain, No Myalgias, No Joint Swelling Skin: No Skin Lesions, No rash Neuro: No Weakness Yes all other systems are reviewed and are negative Constitutional: Constitutional: Reports as per [facility] Past Medical History Attestation statement: The following information was validated with the patient. Source: old records reviewed Onset Date is defined in the Problem List Problems that require an onset date and time if occurred within 24 hrs of arrival to the ED Aortic Dissection and Rupture; Neurologic impairment; Cardiopulmonary Arrest; Endotracheal Intubation; Insertion or Replacement of Mechanical Circulatory Assist Device Medical History No known health problems Surgical History No pertinent past surgical history Family History Family History Other Adopted Social History Social History Household Members: Children Housing: Apartment Do you presently have visiting nurse or other home services: No Alcohol intake: current Alcohol intake frequency: a few times a week Alcohol type: hard liquor Patient Tobacco Use Status: Never used Tobacco Substance Use Type: Marijuana Advance Directives: No Advance Directives Information Provided: No Patient : Yes service: No Current occupational status: employed Physical Exam ED Vital Signs: Vital Signs - 24 hr 05/20/23 14:58 Temperature 98.2 F Pulse Rate 68 Respiratory Rate 18 Blood Pressure 112/62 Pulse Oximetry 99 Oxygen Delivery Method Room Air BMI result Body Mass Index 24.2 Const General: cooperative, healthy appearing and no acute distress Orientation/consciousness: patient oriented x3 Limitations: no limitations HENMT Head: Yes normal to inspection and Yes atraumatic Ears: hearing grossly normal bilaterally General nose exam: Normal external nose present Face and sinus: Yes normal facial exam Eyes General: appearance normal, both eyes and all related structures EOM: EOMs intact bilaterally Neck Neck: Yes normal visual inspection and Yes no meningeal signs Resp Effort & Inspection: normal respiratory effort and no respiratory distress Cardio Rate: regular rate GI Inspection: Yes normal to inspection Palpation (GI): Soft to palpation, nontender, no guarding and not rigid Other: deferred General: Yes no CVA tenderness Back/Spine/Pelvis Back: no CVA tenderness Skin Rashes: no rashes Wounds: no wounds Neuro General: patient oriented x3, tone normal and no meningeal signs Cranial nerves: Yes CN's II-XII intact bilaterally Gait exam (Neuro): Normal gait present Extrem General: Yes normal to inspection Course Course Course Narrative: RME: 28 yold female presents with lower abdominal pain. jesus found out she was last week. patient denies any vaginal bleeding or dysuria. labs, SARS, and Ultrasound ordered -1620--UA with 15 ketones. Urine positive - no leukocytosis. Labs otherwise reassuring. HCG 28,119 US OB pelvic and transvaginal IMPRESSION: 1. Single intrauterine gestation with ultrasound gestational age of 6 weeks 0 days +/- 4 days. 2. Estimated date of delivery is 01/13/2024 +/- 4 days. 3. No maternal adnexal mass or pelvic ascites. > results discussed with patient. Supplied with copy of ultrasound results, [facility] has OB appointment with Leatha on 06/12. Discussed threatened return precautions and recommended repeat HCG in 48 hours, order placed in computer as well as paper order given to patient Medical Decision Making Medical Decision Making MDM Narrative: 28-year-old female presenting to ED complaining of lower abdominal and low back pain x last night. Also reports nausea and vomiting w/+ home test last week. On exam vital signs stable, NAD, nontoxic appearing, abdomen soft/nontender, no CVAT. Concern for early vs threatened/missed vs ectopic vs vs ovarian cyst. Lower suspicion for ovarian torsion without tenderness on exam. Unlikely STI, TOA, appendicitis/diverticulitis or renal stone Plan: Labs, UA, pelvic ultrasound, re-evaluate Please refer to course for remaining clinical decision making, interpretation of labs/imaging results, and discussions with consultants and/or family members. Differential Diagnosis Differential Diagnoses: The differential diagnosis associated with the presentation includes As above Admission/Observation Consideration of admission/observation: Escalation of care including admission/observation considered Lab Data [facility] Lab Attestation statement: I reviewed the patient's lab results. 05/20/23 15:21 05/20/23 15:21 Labs: Lab Results 05/20/23 Range/Units 15:21 WBC 9.4 (4.8-10.8) X10*3/uL RBC 3.92 L (4.20-5.50) X10*6/uL Hgb 12.9 D (12.0-16.0) g/dl Hct 37.0 (37.0-47.0) % MCV 94.4 (80.0-98.0) fL MCH 32.9 (27.0-33.0) pg MCHC 34.9 (31.0-35.0) g/dl RDW 12.2 (11.0-16.0) % Plt Count 299 D (160-400) X10*3/uL MPV 9.2 L (9.4-12.3) fL Immature Gran % (Auto) 0.3 (0.0-0.4) % Neut % (Auto) 69.3 (45-73) % Lymph % (Auto) 22.5 (20-40) % [place] % (Auto) 7.0 (2-11) % Eos % (Auto) 0.6 (0-4) % Baso % (Auto) 0.3 (0-2) % Lymph # (Auto) 2.1 (1.2-4.9) X10*3/uL [place] # (Auto) 0.7 (0.1-1.2) X10*3/uL Eos # (Auto) 0.1 (0.0-0.4) X10*3/uL Baso # (Auto) 0.0 (0.0-0.2) X10*3/uL Abs Immat Gran (auto) 0.03 (0.00-0.03) X10*3/uL Absolute Neuts (auto) 6.5 (2.0-8.3) x10*3/uL Absolute Nucleated RBC 0.000 (0.0-0.012) X10*3/uL Nucleated RBC % (auto) 0.0 (0.0-0.2) /100WBC PT 12.6 (11.1-13.3) SEC INR 1.0 (0.9-1.1) APTT 27.5 (26.0-36.4) SEC Sodium 135 (135-145) mmol/L Potassium 3.8 (3.3-5.1) mmol/L Chloride 104 (96-108) mmol/L Carbon Dioxide 23 (22-29) mmol/L Anion Gap 12 (12-20) BUN 8 L (9-16) mg/dL Creatinine 0.64 (0.5-1.4) mg/dL Estim Creat Clear Calc 103.6 Estimated GFR > 60 Random Glucose 86 (60-115) mg/dL Calcium 9.7 D (8.4-10.2) mg/dL Total Bilirubin 0.6 (0.0-1.0) mg/dL AST 17 (5-31) U/L ALT 19 (0-31) U/L Alkaline Phosphatase 54 (39-117) U/L Total Protein 7.8 (6.5-8.0) g/dL Albumin 4.6 (3.5-5.0) g/dL Lipase 19 (8-78) U/L Beta HCG, Quant 79202 mIU/mL Urine Color Yellow Urine Appearance Clear Urine pH 7.0 (5.0-9.0) Ur Specific [place] 1.020 (1.005-1.025) Urine Protein Negative (Neg-Trace) mg/dL Urine Glucose (UA) Negative (Negative) mg/dL Urine Ketones 15 (Negative) mg/dL Urine Blood Negative (Negative) Urine Nitrite Negative (Negative) Ur Leukocyte Esterase Negative (Negative) Urine Test POSITIVE H (NEGATIVE) Blood Type O Positive Independent Interpretation I performed an independent interpretation of an: Ultrasound Radiology Impression Discussion of test interpretation with radiology: I have reviewed the radiologist's reading. External Record Review External record reviewed: Inpatient record, Office record, Outpatient record, Prior outpatient labs, Prior outpatient radiology, Primary care record and Outside ED record Tests considered The following testing was considered but not selected: As above Discharge Plan Discharge Clinical Impression: Abdominal pain in Patient Disposition: Home, Self-Care Instructions: Abdominal Pain in (ED) Additional Instructions: Your ultrasound shows or 6 weeks Please call your OBGYN and let them know you had pain in your in the emergency department You should have repeat blood work in 48 hours as discussed If your pain persists or worsens, you develop vaginal bleeding or discharge, you are unable to eat or drink or have persistent vomiting return to the emergency department immediately Prescriptions: No Action acetaminophen 325 mg Tablet 650 mg PO Q6H PRN (Reason: Pain, Mild (Pain Scale 1-3)) Qty: 10 0RF docusate sodium 100 mg Capsule 100 mg PO DAILY PRN (Reason: Constipation) Qty: 10 0RF cefuroxime axetil 500 mg Tablet 500 mg PO Q12H Qty: 14 0RF Referrals: [facility] [place] Women's Services [Provider Group] Discharge Date/Time: 05/20/23 17:55
== END 2023-05-20 17:55 | disposition home or self-care (01) ==
PROVIDERS: Emergency Provider Emergency Medicine
DX: O21.9 Vomiting of pregnancy, unspecified (principal); Z3A.01 Less than 8 weeks gestation of pregnancy; M54.50 Low back pain, unspecified; R10.9 Unspecified abdominal pain
CPT/HCPCS: 36415; 76801; 76817; 80053; 81003; 81025; 83690; 84702; 85025; 85610; 85730; 86900; 86901; 99283; 99284